=== PATIENT | male | born 1940 | race American Indian/Alaskan Native ===

== ENCOUNTER 2021-04-29 18:36 | Emergency (ER) | payer MEDICARE, OTHER ==
[~2021-04-29 18:36] MED LIST: CALCIUM CHLORIDE 1,000 MG/10 ML SYRINGE IV ONE; EPINEPHrine 1 MG/10 ML SYRINGE ONE; SODIUM BICARB 8.4% 50 MEQ/50 ML SYRINGE IV ONE
[2021-04-29] MEDS ORDERED: SODIUM CHLORIDE 0.9% 1000 ML 1,000 ML ONE (19:09)
--- NOTE | 2021-04-29 19:18 | Emergency Department Report ---
ED General Adult HPI - General Chief complaint: Cardiac Arrest/CPR Stated complaint: arrest cardiac Time Seen by Provider: 04/29/21 18:57 Source: EMS Mode of arrival: Stretcher Limitations: Altered Mental Status - History of Present Illness Initial comments: The patient presents to the emergency department via EMS status post syncopal episode at home not in a c-collar. Upon arrival to the ED via EMS we were informed that the patient became bradycardia and was given 1.5 mg atropine just before arrival. Patient was transferred from the [facility] to the emergency department bed and at that time patient was given another 0.5 atropine. Approximately 1 minute later asystole was shown on the monitor. CPR was immediately initiated in a c-collar was placed. Please see code sheet for details. Patient was intubated due to the inability to protect airway. Prior to the patient being intubated patient was making nonsensical sounds but had no movement of his extremities. It was reported that the patient had a syncopal episode while eating dinner and hit his head on the table. -: Sudden Location: head, neck Severity scale (0 -10): 0 Improves with: none Worsens with: none Associated Symptoms: denies other symptoms Treatments Prior to Arrival: none - Related Data Previous Rx's Medication Instructions Recorded Last Taken Type Amoxicillin/K Clav Tab [Augmentin 1 tab PO BID #8 tablet 06/26/13 Unknown Rx 875MG] amLODIPine 10 mg PO DAILY #30 tab 06/26/13 Unknown Rx glipiZIDE [glipiZIDE XL] 5 mg PO DAILY #30 tab.er.24 06/26/13 Unknown Rx Allergies Allergy/AdvReac Type Severity Reaction Status Date / Time No Known Allergies Allergy Unverified 06/13/13 12:09 ED Review of Systems ROS: Stated complaint: arrest cardiac Other details as noted in HPI Comment: Unobtainable due to pts medical conditions ED Past Medical Hx - Past Medical History Hx Hypertension: Yes Hx Diabetes: Yes Hx Deep Vein Thrombosis: No - Surgical History Hx Pacemaker: No Hx Internal Defibrillator: No - Social History Smoking Status: Smoker, Current Status Unknown - Medications Home Medications: Home Medications Medication Instructions Recorded Confirmed Last Taken Type Amoxicillin/K Clav Tab [Augmentin 1 tab PO BID #8 tablet 06/26/13 Unknown Rx 875MG] amLODIPine 10 mg PO DAILY #30 tab 01/09/14 Unknown Rx glipiZIDE [glipiZIDE XL] 5 mg PO DAILY #30 tab.er.24 06/26/13 Unknown Rx ED Physical Exam - General Limitations: Altered Mental Status - Head Head exam: Present: normocephalic, other (Facial abrasions and ecchymosis) - Eye Eye exam: Present: PERRL. Absent: scleral icterus, conjunctival injection - ENT ENT exam: Present: other (Left nasal nare with active bleeding) - Neck Neck exam: Present: other (Patient placed in c-collar) - Respiratory Respiratory exam: Present: other (Initially there were breath sounds bilaterally) - Cardiovascular Cardiovascular Exam: Present: bradycardia - GI/Abdominal GI/Abdominal exam: Present: soft, normal bowel sounds. Absent: distended - Neurological Exam Neurological exam: Present: altered, other (GCS:5) - Psychiatric Psychiatric exam: Present: other (Not able to assess due to the patient's condition) - Skin Skin exam: Present: warm, dry, intact, normal color. Absent: rash ED Course Vital Signs 04/29/21 04/29/21 04/29/21 18:37 18:42 19:04 Pulse Rate 94 H 75 66 Respiratory 12 9 L 14 Rate Blood Pressure 98/55 98/55 98/55 Blood Pressure 98/55 [Left] O2 Sat by Pulse 100 Oximetry 04/29/21 04/29/21 04/29/21 19:06 19:10 19:16 Pulse Rate 61 57 L 138 H Respiratory 15 26 H 95 H Rate Blood Pressure 98/55 84/53 84/53 Blood Pressure [Left] O2 Sat by Pulse 100 Oximetry 04/29/21 04/29/21 04/29/21 19:20 19:25 19:30 Pulse Rate 120 H 73 60 Respiratory 26 H 26 H 26 H Rate Blood Pressure 199/125 112/63 124/68 Blood Pressure [Left] O2 Sat by Pulse 100 100 Oximetry 04/29/21 04/29/21 04/29/21 19:35 19:40 19:45 Pulse Rate 58 L 58 L 55 L Respiratory 26 H 25 H 26 H Rate Blood Pressure 95/53 95/53 100/55 Blood Pressure [Left] O2 Sat by Pulse 100 100 100 Oximetry 04/29/21 04/29/21 04/29/21 19:50 19:55 20:00 Pulse Rate 58 L 55 L 52 L Respiratory 26 H 26 H 26 H Rate Blood Pressure 100/55 102/56 102/56 Blood Pressure [Left] O2 Sat by Pulse 100 100 100 Oximetry 04/29/21 04/29/21 04/29/21 20:05 20:10 20:15 Pulse Rate 68 63 55 L Respiratory 26 H 25 H 26 H Rate Blood Pressure 103/59 103/59 107/58 Blood Pressure [Left] O2 Sat by Pulse 100 100 100 Oximetry 04/29/21 04/29/21 04/29/21 20:20 20:25 20:30 Pulse Rate 54 L 67 64 Respiratory 24 24 24 Rate Blood Pressure 107/58 116/63 116/63 Blood Pressure [Left] O2 Sat by Pulse 100 100 Oximetry 04/29/21 04/29/21 04/29/21 20:35 20:40 20:45 Pulse Rate 57 L 55 L 54 L Respiratory 23 24 24 Rate Blood Pressure 104/63 104/63 110/63 Blood Pressure [Left] O2 Sat by Pulse 100 100 100 Oximetry 04/29/21 04/29/21 04/29/21 20:50 20:55 21:00 Pulse Rate 58 L 56 L 56 L Respiratory 24 17 24 Rate Blood Pressure 110/63 100/61 100/61 Blood Pressure [Left] O2 Sat by Pulse 100 100 Oximetry 04/29/21 04/29/21 04/29/21 21:05 21:07 21:10 Pulse Rate 56 L 56 L Respiratory 17 22 11 L Rate Blood Pressure 98/64 98/64 Blood Pressure [Left] O2 Sat by Pulse 100 100 100 Oximetry 04/29/21 04/29/21 04/29/21 21:15 21:20 21:25 Pulse Rate 52 L 51 L 52 L Respiratory 18 20 8 L Rate Blood Pressure 101/63 101/63 102/59 Blood Pressure [Left] O2 Sat by Pulse 100 100 100 Oximetry 04/29/21 04/29/21 04/29/21 21:33 21:35 21:40 Pulse Rate 51 L 51 L 54 L Respiratory 15 Rate Blood Pressure 114/66 121/70 Blood Pressure [Left] O2 Sat by Pulse 100 100 100 Oximetry 04/29/21 04/29/21 04/29/21 21:44 21:45 21:50 Pulse Rate 60 54 L 64 Respiratory 12 10 L Rate Blood Pressure 124/68 124/68 116/72 Blood Pressure [Left] O2 Sat by Pulse 100 100 100 Oximetry 04/29/21 04/29/21 21:55 22:00 Pulse Rate 56 L 102 H Respiratory 10 L 8 L Rate Blood Pressure 118/66 128/83 Blood Pressure [Left] O2 Sat by Pulse 100 93 Oximetry - Intubation Time Out Performed: Yes Sedative: none Laryngoscope: Michael Size: 3 ET Tube Size: 7.5 Tube Secured Depth (cm): 19 Tube Secured Location: lips Tube Placement Confirmation: visualized tube passing t, equal breath sounds bilat, no breath sounds over epi Patient Tolerated Procedure: well Intubation Complications: none Additional Comments: Patient was intubated in full C-spine precautions ED Medical Decision Making - Lab Data Result diagrams: 04/29/21 19:22 04/29/21 19:22 Lab Results 04/29/21 04/29/21 04/29/21 Range/Units 19:22 19:22 19:22 WBC 7.2 (4.5-11.0) K/mm3 RBC 2.68 L (3.65-5.03) M/mm3 Hgb 8.3 L (11.8-15.2) gm/dl Hct 25.9 L (35.5-45.6) % MCV 97 H (84-94) fl MCH 31 (28-32) pg MCHC 32 (32-34) % RDW 15.3 H (13.2-15.2) % Plt Count 233 (140-440) K/mm3 Lymph % (Auto) 29.8 (13.4-35.0) % [place] % (Auto) 5.1 (0.0-7.3) % Eos % (Auto) 0.3 (0.0-4.3) % Baso % (Auto) 0.2 (0.0-1.8) % Lymph # (Auto) 2.1 (1.2-5.4) K/mm3 [place] # (Auto) 0.4 (0.0-0.8) K/mm3 Eos # (Auto) 0.0 (0.0-0.4) K/mm3 Baso # (Auto) 0.0 (0.0-0.1) K/mm3 Seg Neutrophils % 64.6 (40.0-70.0) % Seg Neutrophils # 4.6 (1.8-7.7) K/mm3 PT 17.0 H (12.2-14.9) Sec. INR 1.25 H (0.87-1.13) APTT 33.3 (24.2-36.6) Sec. Sodium 135 L (137-145) mmol/L Potassium 3.8 (3.6-5.0) mmol/L Chloride 100.4 (98-107) mmol/L Carbon Dioxide 23 (22-30) mmol/L Anion Gap 15 mmol/L BUN 17 (9-20) mg/dL Creatinine 1.1 (0.8-1.3) mg/dL Estimated GFR > 60 ml/min BUN/Creatinine Ratio 15 % Glucose 149 H (75-100) mg/dL Lactic Acid (0.7-2.0) mmol/L Calcium 8.4 (8.4-10.2) mg/dL Magnesium 1.80 (1.7-2.3) mg/dL Total Bilirubin 0.30 (0.1-1.2) mg/dL AST 53 H (5-40) units/L ALT 39 (7-56) units/L Alkaline Phosphatase 56 (35-129) units/L Troponin T < 0.010 (0.00-0.029) ng/mL NT-Pro-B Natriuret Pep 71.06 (0-900) pg/mL Total Protein 8.5 H (6.3-8.2) g/dL Albumin 2.3 L (3.9-5) g/dL Albumin/Globulin Ratio 0.4 % 04/29/21 Range/Units 19:22 WBC (4.5-11.0) K/mm3 RBC (3.65-5.03) M/mm3 Hgb (11.8-15.2) gm/dl Hct (35.5-45.6) % MCV (84-94) fl MCH (28-32) pg MCHC (32-34) % RDW (13.2-15.2) % Plt Count (140-440) K/mm3 Lymph % (Auto) (13.4-35.0) % [place] % (Auto) (0.0-7.3) % Eos % (Auto) (0.0-4.3) % Baso % (Auto) (0.0-1.8) % Lymph # (Auto) (1.2-5.4) K/mm3 [place] # (Auto) (0.0-0.8) K/mm3 Eos # (Auto) (0.0-0.4) K/mm3 Baso # (Auto) (0.0-0.1) K/mm3 Seg Neutrophils % (40.0-70.0) % Seg Neutrophils # (1.8-7.7) K/mm3 PT (12.2-14.9) Sec. INR (0.87-1.13) APTT (24.2-36.6) Sec. Sodium (137-145) mmol/L Potassium (3.6-5.0) mmol/L Chloride (98-107) mmol/L Carbon Dioxide (22-30) mmol/L Anion Gap mmol/L BUN (9-20) mg/dL Creatinine (0.8-1.3) mg/dL Estimated GFR ml/min BUN/Creatinine Ratio % Glucose (75-100) mg/dL Lactic Acid 3.60 H* (0.7-2.0) mmol/L Calcium (8.4-10.2) mg/dL Magnesium (1.7-2.3) mg/dL Total Bilirubin (0.1-1.2) mg/dL AST (5-40) units/L ALT (7-56) units/L Alkaline Phosphatase (35-129) units/L Troponin T (0.00-0.029) ng/mL NT-Pro-B Natriuret Pep (0-900) pg/mL Total Protein (6.3-8.2) g/dL Albumin (3.9-5) g/dL Albumin/Globulin Ratio % - Radiology Data Radiology results: report reviewed - Medical Decision Making As mentioned prior patient was placed in a c-collar Patient cardiac arrest please see code sheet for details Once return of spontaneous circulation was obtained patient was intubated in complete C-spine precautions Patient then was sent to the CT suite for CT of his head due to concerns of a intracranial bleed. Patient also had CT of cervical spine done CT of cervical spine shows C3 fracture Upon the patient's return from CT the patient once again coded with return of spontaneous circulation please see code sheet for details At this time [facility] was contacted and the patient was excepted at 8:[address] Joseph Critical Care Time: Yes Critical care time in (mins) excluding proc time.: 75 Critical care attestation.: If time is entered above; I have spent that time in minutes in the direct care of this critically ill patient, excluding procedure time. ED Disposition Clinical Impression: Cervical spine fracture, Cardiac arrest Disposition: 02 [facility] Is pt being admited?: No Does the pt Need Aspirin: No Condition: Critical
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
[2021-04-29 19:46] LABS: Basophils % (Auto) 0.2 % (0.0-1.8); Eosinophils % (Auto) 0.3 % (0.0-4.3); Hematocrit 25.9 % (35.5-45.6); Hemoglobin 8.3 gm/dl (11.8-15.2); Lymphocytes # (Auto) 2.1 K/mm3 (1.2-5.4); Lymphocytes % (Auto) 29.8 % (13.4-35.0); Mean Corpuscular HGB Conc 32 % (32-34); Mean Corpuscular Volume 97 fl (84-94); Monocytes # (Auto) 0.4 K/mm3 (0.0-0.8); Monocytes % (Auto) 5.1 % (0.0-7.3); Platelet Count 233 K/mm3 (140-440); Red Blood Count 2.68 M/mm3 (3.65-5.03); Red Cell Distribution Width 15.3 % (13.2-15.2)
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
[2021-04-29 19:51] LABS: INR 1.25 (0.87-1.13)
[2021-04-29 19:52] LABS: Partial Thromboplastin Time 33.3 Sec. (24.2-36.6)
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
[2021-04-29 20:26] LABS: Alanine Aminotransferase 39 units/L (7-56); Albumin 2.3 g/dL (3.9-5); BUN/Creatinine Ratio 15; Blood Urea Nitrogen 17 mg/dL (9-20); Calcium 8.4 mg/dL (8.4-10.2); Hemolysis Index 16
--- NOTE | 2021-04-29 20:46 | XRay Report ---
XR chest 1V ap INDICATION / CLINICAL INFORMATION: Intubation/confirm placement. COMPARISON: 06/27/2013 FINDINGS: SUPPORT DEVICES: The endotracheal tube terminates above the thoracic inlet. Recommend advancement by approximately 6 cm. HEART /PULMONARY VASCULATURE: No significant abnormality. LUNGS / PLEURA: Lungs are hyperexpanded. No focal airspace consolidation. No sizable pleural effusion . No pneumothorax. Signer Name: Ascencion Simms MD Signed: 04/29/2021 8:41 PM Workstation Name: [id number]
--- NOTE | 2021-04-29 21:15 | XRay Report ---
XR chest 1V ap INDICATION / CLINICAL INFORMATION: et tube placement. COMPARISON: Radiograph from earlier same day. FINDINGS: Endotracheal tube remains above the level of the clavicles. Recommend advancement by approximately 5 cm. Otherwise stable. Signer Name: Ascencion Simms MD Signed: 04/29/2021 9:10 PM Workstation Name: [id number]
[2021-04-29 22:24] VITALS: BP 128/83
--- NOTE | 2021-05-03 10:46 | Electrocardiograph Report ---
[facility] Test Date: 2021-04-29 Test Time: 20:55:30 Pat Name: FAUSTINO BLACKMON Department: Room: Gender: M [employer]: Radha BECKMAN : 1940 Requested By: MARIEL MCCULLOUGH Order Number: [id number] Reading MD: Neeraj Murcia Measurements Intervals Morris Rate: 56 P: 85 TN: 168 QRS: 85 QRSD: 117 T: 76 QT: 482 QTc: 466 Interpretive Statements Sinus bradycardia Otherwise essentially normal ECG No previous ECG available for comparison Electronically Signed On 05-03-2021 10:46:18 EST by Neeraj Murcia
== END 2021-04-29 22:13 | disposition short-term general hospital (02) ==
LOC: ED 18:36
DX: S12.290A Other displaced fracture of third cervical vertebra, initial encounter for closed fracture (principal); I46.9 Cardiac arrest, cause unspecified; Z79.899 Other long term (current) drug therapy; X58.XXXA Exposure to other specified factors, initial encounter; Y93.89 Activity, other specified; Y92.89 Other specified places as the place of occurrence of the external cause; Y99.8 Other external cause status
CPT/HCPCS: 31500; 36415; 70450; 70496; 70498; 71045; 72125; 80053; 82140; 83735; 83880; 84484; 85025; 85610; 85730; 87040; 92950; 93005; 99291; 99292; J0171; J3490; J7030; Q9967; 94002; 99285; Q0162